=== PATIENT | male | born 1955 | race Caucasian/White ===

== ENCOUNTER 2019-05-20 08:57 | Day surgery (SDC) | payer MEDICARE ==
[~2019-05-20] VITALS: Ht 185.4 cm; Wt 86.9 kg
[~2019-05-20 08:57] MED LIST: ASA; B-12; HYDCHL25 PO
[2019-05-20] MEDS ORDERED: Lasix40 MG (09:58)
[2019-05-20] MEDS ORDERED: Prinivil10 MG (09:58)
[2019-05-20] MEDS ORDERED: Zocor20 MG (09:59)
[2019-05-20] MEDS ORDERED: Aspir 8181 MG (10:00)
--- NOTE | 2019-05-20 10:38 | NUR ---
05/20/19 Cortney Massey WHEN ASKED PT. IF ANY PAIN, PT. STATED "EVERYWHERE". PT. HAS ARTHRITIS.
--- NOTE | 2019-05-20 13:24 | NUR ---
05/20/19 1324 Cortney George S PT. REFUSED ANYTHING TO DRINK. ALSO WHEN ASKED PT. IF HE HAD ANY PAIN, PT. VERBALIZED THAT HIS "EVERYWHERE" PAIN WAS BETTER. PT. DIDN'T HAVE ANY ABD. PAIN.
--- NOTE | 2019-05-20 14:11 | NUR ---
05/20/19 1411 Cortney George PT. INSTRUCTED THAT WHEN SUCTIONING HIM, HIS LOWER LEFT LIP BLED A LITTLE BIT. PT. VERBALIZES IT WASN'T BOTHERING HIM, IT WAS FINE.
== END 2019-05-20 11:50 | disposition home or self-care (01) ==
LOC: ORSCSDS 08:57
PROVIDERS: Internal Medicine Gastroenterology
PROC: 0DBK8ZX Excision of Ascending Colon, Via Natural or Artificial Opening Endoscopic, Diagnostic (ICD-10-PCS; principal; 2019-05-20 10:15)
PROC: 0DBH8ZX Excision of Cecum, Via Natural or Artificial Opening Endoscopic, Diagnostic (ICD-10-PCS; principal; 2019-05-20 10:15)
DX: Z12.11 Encounter for screening for malignant neoplasm of colon (principal); D12.0 Benign neoplasm of cecum; D12.2 Benign neoplasm of ascending colon; K57.30 Diverticulosis of large intestine without perforation or abscess without bleeding; I10 Essential (primary) hypertension; Z79.899 Other long term (current) drug therapy; Z79.82 Long term (current) use of aspirin; Z87.891 Personal history of nicotine dependence
CPT/HCPCS: 88305; J2704; J7120

== ENCOUNTER 2022-11-27 17:42 | Emergency (ER) | payer MEDICARE ==
[~2022-11-27] VITALS: Ht 185.4 cm; Wt 99.8 kg
[~2022-11-27 17:42] MED LIST changes: +Aspir 8181 MG; +Lasix40 MG; +Prinivil10 MG; +Zocor20 MG
[2022-11-27 19:15] VITALS: BP 130/84
== END 2022-11-27 20:15 | disposition home or self-care (01) ==
LOC: ER 17:42
DX: R51.9 Headache, unspecified (principal); R05.9 Cough, unspecified; Z79.899 Other long term (current) drug therapy; Z79.82 Long term (current) use of aspirin
CPT/HCPCS: 71045